=== PATIENT | male | born 2000 | race Hispanic/Latino ===

== ENCOUNTER 2022-01-06 11:42 | Emergency (ER) | payer BC ==
[~2022-01-06] VITALS: Ht 182.9 cm; Wt 70.3 kg
[2022-01-06] MEDS ORDERED: AMOXICILLIN500 MG PO (12:30)
[2022-01-06] MEDS ORDERED: BENZONATATE100 MG PO (12:35)
== END 2022-01-06 19:02 | disposition home or self-care (01) ==
LOC: ER 12:26
DX: R50.9 Fever, unspecified (principal); J02.9 Acute pharyngitis, unspecified
CPT/HCPCS: 99283